=== PATIENT | female | born 2000 | race Caucasian/White ===

== ENCOUNTER 2024-06-27 06:58 | Emergency (ER) | payer BC, SELFPAY ==
[2024-06-27 07:14] VITALS: BP 77/45
--- NOTE | 2024-06-27 07:33 | ED.GENMED ---
History of Present Illness
General
Chief Complaint: Abdominal Symptoms
Source: patient
Exam Limitations: none
Time Seen by Provider: 06/27/24 07:22
History of Present Illness
History of Present Illness:
See MDM
Past History
Past History
ED Past Medical History: None
ED Past Surgical History: Tonsilectomy
Social History
Tobacco: Non-smoker
Alcohol: None
Phy Exam
Physical Exam
Physical Exam:
See MDM
Course
Orders/Labs/Results
Orders:
Orders
06/27/24 07:21
Test Result ONCE
06/27/24 07:29
CT Abd/pelvis W Iv Cont Urgent
Comment:
Reason For Exam: general abd pain, recent travel, vomiting
0.9% Sodium Chloride 1000 ml [Nss] 1,000 ml IV BOLUS
Ketorolac [Toradol] 30 mg IV NOW STA
Ondansetron Injectable [Zofran] 4 mg IV NOW STA
Pantoprazole [Protonix IV] 40 mg IV NOW STA
06/27/24 08:08
COVID-19 Antigen Urgent
Source: Nasal Swab
Complete Blood Count/With Diff Urgent
Comprehensive Metabolic Panel Urgent
HCG, Serum Qualitative Screen Urgent
06/27/24 08:52
0.9% Sodium Chloride 1000 ml [Nss] 1,000 ml IV BOLUS
Abnormal Lab Results
06/27/24
08:08
WBC 13.3 H 10^3/uL
(4.8-10.8)
MCH 31.8 H pg
(27.0-31.0)
RDW 11.2 L %
(11.5-14.5)
Abs Immat Gran (auto) 0.1 H 10^3/uL
(0-0.05)
Absolute Neuts (auto) 11.7 H 10^3/uL
(1.4-6.5)
Absolute Lymphs (auto) 0.8 L 10^3/uL
(1.2-3.4)
Absolute Monos (auto) 0.7 H 10^3/uL
(0.1-0.6)
Neutrophils % 87.5 H %
(42.2-75.2)
Lymphocytes % 5.7 L %
(20.5-51.1)
Carbon Dioxide 20 L mmol/L
(22-30)
Glucose 128 H mg/dl
(70-99)
06/27/24 08:08
06/27/24 08:08
Vital Signs
Initial and Last Documented VS:
Initial Vital Signs
Temp Pulse Resp BP Pulse Ox
98.5 F 112 22 77/45 99
06/27/24 07:14 06/27/24 07:14 06/27/24 07:14 06/27/24 07:14 06/27/24 07:14
Last Documented Vital Signs
Temp Pulse Resp BP Pulse Ox
98.5 F 96 18 104/61 99
06/27/24 07:14 06/27/24 09:29 06/27/24 08:00 06/27/24 08:00 06/27/24 09:29
MDM/Problems Addressed
Differential Diagnosis Includes:
HPI and MDM Narrative:
24-year-old female presenting with nausea, vomiting and abdominal pain. Patient recently returned from a trip to [facility]. She denies any sick contacts while she was there. She initially thought her abdominal pain could be related to too much
caffeine and possibly gastritis. She had developed black diarrhea which has since resolved.
On exam, she is hypovolemic. She has low blood pressure which goes along with dehydration. Will give IV fluids. Will give dose of Protonix. We discussed the possibility of peptic ulcer disease but it is reassuring that her black diarrhea has
resolved. Will obtain CT
Physical exam
General: Weak and fatigued
HEENT: protecting airway. Dry mucous membranes
Neck: appears supple
CV: No evidence of cyanosis. Tachycardic
Resp: No accessory muscle use
Abd: Non-distended. Generalized abdominal tenderness. No rebound
Extremities: No deformities
Neuro: alert
Psych: Normal affect
Skin: Intact
Problems Addressed including Acute and Chronic Conditions affecting care:
1. Abdominal pain
Acuity: acute
Prognosis: stable
Details: Given ongoing symptoms, will obtain CT
2. Dehydration
Acuity: acute
Prognosis: stable
Details: Will give IV fluids
Updates
On reassessment, patient feeling better. CT consistent with acute uncomplicated gastroenteritis. Patient tolerating p.o. Discussed treating as possible peptic ulcer disease and follow-up with GI
Differential Diagnosis (but not limited to): Gastroenteritis, peptic ulcer disease, acute appendicitis
Testing considered: RUQ US
Drug therapy (if applicable): OTC meds, please see d/c instruction regarding Rx drugs
Amount and/or Complexity of Data Reviewed
Clinical info obtained from: Patient
External data reviewed: N/A
Labs I independently reviewed (but not limited to): Hemoglobin stable
Radiology: The CT scan was personally and independently reviewed. In addition, official CT report reviewed.
Pulse Ox: not hypoxic
EKG independently reviewed: N/A
Plastic Press Molder: N/A
Critical Care: N/A
Risk of Complication:
Social Determinants of health: Good social support
Discussed with other providers: N/A
Escalation of Care includes Admit/Obs: After being observed in the Emergency Department, pt stable for discharge.
Occasional wrong word or 'sound a like' substitutions may have occurred due to the inherent limitations of voice recognition software. Read the chart carefully and recognize, using context, where substitutions have occurred.
*Critical Care Note
Total Time (30-74mins, 75-104mins- exclusive of procedures): Not Applicable
ED Attending Note
-
Portions of this chart may have been created with voice recognition software.� Occasional wrong word or��sound alike� substitutions may have occurred due to the inherent limitations of voice recognition software.
Discharge Plan
Departure
Patient Disposition: Home (Routine Discharge)
Date of Disposition: 06/27/24
Time of Disposition: 10:27
Patient with high blood pressure during this ER visit?: No
Discharge Problem:
Gastroenteritis
Prescriptions:
New
famotidine [Pepcid] 40 mg tablet
40 mg PO DAILY Qty: 14 0RF
pantoprazole [Protonix] 40 mg tablet,delayed release (DR/EC)
40 mg PO DAILY Qty: 14 0RF
sucralfate [Carafate] 1 gram tablet
1 g PO BID Qty: 30 0RF
ondansetron 4 mg Tablet,Disintegrating
4 mg PO BIDPRN PRN (Reason: nausea/vomiting) Qty: 10 0RF
Referrals:
Shital Vazquez CRNP [Family Provider] -
Tatyana Beltran MD [Active] -
Activity Restrictions/Additional Instructions:
Please return for any worsening symptoms.
You may return at any time if you have further concerns.
Please follow up with your doctor at the first available appointment, preferably this week.
Please make an appointment to see the workplace relations adviser.
Thank you for choosing [facility].
Interventions
Interventions:
*Risk Screen - Suicide Last Done: 06/27/24 09:29
*General Assessment Last Done: 06/27/24 09:29
*Neglect/Abuse Screening Last Done: 06/27/24 09:29
ED- Fall Risk Assessment Last Done: 06/27/24 08:00
*ED COVID-19 Vaccine History Last Done: 06/27/24 09:29
CL-Efhgcu-Gewiyeyteu Assessment Last Done: 06/27/24 08:00
Discharge Date and Time
Print Language: [id number]
[2024-06-27 08:00] VITALS: BP 104/61
[2024-06-27] MEDS: NSS 1000 IV ×2 (08:01→09:35)
[2024-06-27] MEDS: TORADOL 30 MG IV (08:02)
[2024-06-27] MEDS: PROTONIX IV 40 MG IV (08:02)
[2024-06-27] MEDS: ZOFRAN 4 MG IV (08:02)
[2024-06-27 08:17] LABS: % Basophils 0.3 % (0-2); % Eosinophils 0.7 % (0-6); % Immature Granulocytes 0.4 % (0-0.5); % Lymphocytes 5.7 % (20.5-51.1); % Monocytes 5.4 % (1.7-9.3); % Neutrophils 87.5 % (42.2-75.2); Absolute Eosinophils 0.1 10^3/uL (0-0.7); Absolute Immature Granulocytes 0.1 10^3/uL (0-0.05); Absolute Lymphocytes 0.8 10^3/uL (1.2-3.4); Absolute Monocytes 0.7 10^3/uL (0.1-0.6); Absolute Neutrophils 11.7 10^3/uL (1.4-6.5); Hematocrit 42.5 % (37.0-47.0); Hemoglobin 15.5 g/dL (12.0-16.0); Mean Corp Hgb Conc. 36.5 g/dL (33.0-37.0); Mean Corpuscular Hgb 31.8 pg (27.0-31.0); Mean Corpuscular Volume 87.3 fL (81.0-99.0); Mean Platelet Volume 8.8 fL (7.4-10.4); Nucleated Red Blood Cells % 0 %; Platelet Count 333 10^3/uL (130-400); Red Blood Cell Count 4.87 10^6/uL (4.20-5.40); Red Cell Dist. Width 11.2 % (11.5-14.5); White Blood Cell Count 13.3 10^3/uL (4.8-10.8)
[2024-06-27 08:35] LABS: COVID-19 Antigen Negative (Negative)
[2024-06-27 08:37] LABS: ALT (SGPT) 18 U/L (0-35); AST (SGOT) 27 U/L (14-36); Albumin 4.8 g/dl (3.5-5.0); Alkaline Phosphatase 77 U/L (38-126); Blood Urea Nitrogen 14 mg/dl (7-17); Calcium 9.9 mg/dl (8.4-10.2); Carbon Dioxide 20 mmol/L (22-30); Chloride 105 mmol/L (98-107); Glucose 128 mg/dl (70-99); Potassium 4.2 mmol/L (3.5-5.1); Sodium 140 mmol/L (135-145); Total Bilirubin 0.9 mg/dl (0.2-1.3); Total Protein 7.1 g/dl (6.3-8.2); eGFR > 60.00
[2024-06-27 08:38] LABS: HCG, Serum Qualitative Screen Negative
[2024-06-27 09:29] VITALS: BMI 23.5
[2024-06-27 09:32] VITALS: BP 107/74
[2024-06-27 10:43] VITALS: BP 118/68
== END 2024-06-27 10:45 | disposition home or self-care (01) ==
LOC: EMR 06:58
PROVIDERS: EMERGENCY PHYSICIAN Student in an Organized Health Care Education/Training Program; FAMILY PHYSICIAN Nurse Practitioner Family
DX: K52.9 Noninfective gastroenteritis and colitis, unspecified (principal); E86.0 Dehydration; E86.1 Hypovolemia
CPT/HCPCS: 99284; 96374; 96375; 96361; 74177; 80053; 84703; 85025; 87811; Q9967